=== PATIENT | male | born 1975 ===

== ENCOUNTER 2020-10-25 12:30 | Emergency (ER) | payer SELFPAY ==
[2020-10-25 15:55] VITALS: BP 161/95
--- NOTE | 2020-10-25 15:57 | Event Note ---
ED Screening Note Date of service: 10/25/20 Time: 15:54 ED Screening Note: 45-year-old male patient presents to the emergency department with complaints of dizziness and right arm numbness starting this morning. No preceding fall, trauma, or injury. Patient took his blood pressure and found his systolic blood pressure to be approximately 160 mmHg. He has never been diagnosed with hypertension. He does not have a primary care provider. His girlfriend reportedly gave him "a pill" for his symptoms, which were present for several hours, and his symptoms resolved. He does not know the name of the medication she gave him. General: Awake, appropriately interactive, no acute distress. Neck: Supple. Full range of motion intact. Cardiovascular: Normal peripheral perfusion. Pulmonary: No respiratory distress. Patient is speaking normally without use of accessory muscles. Skin: No apparent rashes or lesions. Neurological: No facial asymmetry. Speech is clear. Follows commands. Patient is alert and oriented. Musculoskeletal: Moves all four extremities spontaneously with normal range of motion. Psych: Cooperative. Appropriate mood and affect. I have greeted and performed a focused rapid initial assessment of this patient. A comprehensive ED assessment and evaluation of the patient, analysis of all test results, and completion of the medical decision-making process will be conducted by additional ED providers. This initial assessment/diagnostic orders/clinical plan/treatment(s) is/are subject to change based on patients health status, clinical progression and re-assessment. Further treatment and workup at subsequent clinical provider's discretion. Patient/guardian urged not to elope from the ED as their condition may be serious if not clinically assessed and managed.
[2020-10-25 16:24] LABS: Basophils % (Auto) 1.2 % (0.0-1.8); Eosinophils % (Auto) 0.2 % (0.0-4.3); Hematocrit 43.9 % (30.3-42.9); Hemoglobin 14.4 gm/dl (10.1-14.3); Lymphocytes # (Auto) 1.2 K/mm3 (1.2-5.4); Lymphocytes % (Auto) 33.2 % (13.4-35.0); Mean Corpuscular HGB Conc 33 % (30-34); Mean Corpuscular Volume 92 fl (79-97); Monocytes # (Auto) 0.4 K/mm3 (0.0-0.8); Monocytes % (Auto) 11.3 % (0.0-7.3); Platelet Count 223 K/mm3 (140-440); Red Blood Count 4.75 M/mm3 (3.65-5.03); Red Cell Distribution Width 14.7 % (13.2-15.2)
--- NOTE | 2020-10-25 16:41 | XRay Report ---
XR chest routine 2V INDICATION / CLINICAL INFORMATION: dizziness/left arm numbness COMPARISON: None available. FINDINGS: SUPPORT DEVICES: None. HEART / MEDIASTINUM: No significant abnormality. LUNGS / PLEURA: Lungs are clear. Costophrenic sulci are sharp. No pneumothorax. ADDITIONAL FINDINGS: No significant additional findings. IMPRESSION: 1. No acute findings. Signer Name: Pasha Landeros MD Signed: 10/25/2020 4:37 PM Workstation Name: [id number]
[2020-10-25 16:46] LABS: Alanine Aminotransferase 26 units/L (7-56); Albumin 4.5 g/dL (3.9-5); BUN/Creatinine Ratio 15; Blood Urea Nitrogen 12 mg/dL (9-20); Calcium 9.1 mg/dL (8.4-10.2); Hemolysis Index 5
--- NOTE | 2020-10-25 18:48 | Emergency Department Report ---
ED Dizziness HPI - General Chief Complaint: Dizziness Stated Complaint: BP HIGH/SHAKES Time Seen by Provider: 10/25/20 18:25 Source: patient Mode of arrival: Ambulatory Limitations: No Limitations, Other (Patient cooperation) - History of Present Illness Initial Comments: 45-year-old male presents emergency department complaining having episode of hypertension while he was out and about doing some shopping associated with with some vague dizziness which has since resolved. He reports no headache, no chest pain no shortness of breath no fevers, chills, sweats, no nausea, no vomiting, no loss of vision no unilateral weakness no numbness or tingling MD Complaint: lightheadedness -: Gradual Timing: gradual onset Description: lightheadedness Severity: mild Worsens With: nothing Associated Symptoms: denies: chest pain, confusion, cough, diaphoresis, fever/chills, loss of appetite, malaise, seizure, shortness of breath, syncope, weakness - Related Data Allergies Allergy/AdvReac Type Severity Reaction Status Date / Time No Known Allergies Allergy Unverified 10/25/20 12:46 ED Review of Systems ROS: Stated complaint: BP HIGH/SHAKES Other details as noted in HPI Comment: All other systems reviewed and negative ED Past Medical Hx - Past Medical History Previous Medical History?: No - Surgical History Past Surgical History?: No ED Physical Exam - General Limitations: No Limitations General appearance: alert, in no apparent distress - Head Head exam: Present: atraumatic, normocephalic - Eye Eye exam: Present: normal appearance - ENT ENT exam: Present: normal exam, normal orophraynx, mucous membranes moist - Neck Neck exam: Present: normal inspection - Respiratory Respiratory exam: Present: normal lung sounds bilaterally. Absent: respiratory distress, rales, rhonchi - Cardiovascular Cardiovascular Exam: Present: regular rate, normal rhythm. Absent: systolic murmur, diastolic murmur, rubs, gallop - GI/Abdominal GI/Abdominal exam: Present: soft, normal bowel sounds. Absent: tenderness, guarding, hyperactive bowel sounds, bruit - Rectal Rectal exam: Present: deferred - Extremities Exam Extremities exam: Present: normal inspection - Back Exam Back exam: Present: normal inspection - Neurological Exam Neurological exam: Present: alert, oriented X3 - Psychiatric Psychiatric exam: Present: normal affect, normal mood - Skin Skin exam: Present: warm, dry, intact, normal color. Absent: rash ED Course Vital Signs 10/25/20 12:50 Temperature 98.8 F Pulse Rate 80 Respiratory 18 Rate Blood Pressure 161/95 [Right] O2 Sat by Pulse 98 Oximetry ED Medical Decision Making - Lab Data Result diagrams: 10/25/20 16:03 10/25/20 16:03 - Radiology Data Radiology results: report reviewed [address] [place] [address] XRay Report Signed Patient: SARAH RUIZ MR#: [id number] : 1975 Acct:[id number] Age/Sex: 45 / M ADM Date: 10/25/20 Loc: ED Attending Dr: Ordering Physician: JOO TIRADO Date of Service: 10/25/20 Procedure(s): XR chest routine 2V Accession Number(s): [id number] cc: JOO TIRADO Fluoro Time In Minutes: XR chest routine 2V INDICATION / CLINICAL INFORMATION: dizziness/left arm numbness COMPARISON: None available. FINDINGS: SUPPORT DEVICES: None. HEART / MEDIASTINUM: No significant abnormality. LUNGS / PLEURA: Lungs are clear. Costophrenic sulci are sharp. No pneumothorax. ADDITIONAL FINDINGS: No significant additional findings. IMPRESSION: 1. No acute findings. Signer Name: Pasha Landeros MD Signed: 10/25/2020 4:37 PM Workstation Name: [id number] Transcribed By: CS Dictated By: Pasha Landeros MD Electronically Authenticated By: Pasha Landeros MD Signed Date/Time: 10/25/201636 DD/ 36 TD/TT: Print - Medical Decision Making Based on the history, exam, and findings presentation not consistent with syncope, seizure, stroke, meningitis, symptomatic anemia, increased ICP, ICH. A dditionally I have a low suspicion for labyrinthitis, acute otitis media or other infectious process. Prior to discharge the symptoms are controlled the patient is functioning well speaking in full sentences he is able to sit and stand and ambulate with no limitations and is able to utilize his cell phone in the form of texting and talking with video check with with no delay. Advise follow-up with primary care provider within 24 to 48 hours. Critical care attestation.: If time is entered above; I have spent that time in minutes in the direct care of this critically ill patient, excluding procedure time. ED Disposition Clinical Impression: HTN (hypertension), Dizziness Disposition: DC- TO HOME OR SELFCARE Is pt being admited?: No Does the pt Need Aspirin: No Condition: Stable Instructions: DASH Eating Plan, Dizziness, [id number], Dizziness, Hypertension, Adult, Hypertension (ED) Additional Instructions: Please sure to follow-up with your primary care provider for definitive treatment of your hypertension and and further treatment options. Referrals: PRIMARY CARE, [Primary Care Provider] - 3-5 Days ABBY GAMEZ MD [Staff Physician] - 3-5 Days [facility] [Provider Group] - 3-5 Days [facility] [Outside] - 3-5 Days
--- NOTE | 2020-11-04 10:29 | Electrocardiograph Report ---
[facility] Test Date: 2020-10-25 Test Time: 12:52:09 Pat Name: SARAH RUIZ Department: Room: Gender: M [employer]: ML : 1975 Requested By: SIXTO ROB Order Number: [id number] Reading MD: Joo Samuels Measurements Intervals [place] Rate: 98 P: 149 SD: 143 QRS: 107 QRSD: 98 T: 125 QT: 349 QTc: 446 Interpretive Statements Sinus or ectopic atrial rhythm Probable left atrial enlargement Right axis deviation Abnormal T, consider ischemia, lateral leads No previous ECG available for comparison Electronically Signed On 11-04-2020 10:29:04 EDT by Joo Samuels
== END 2020-10-25 19:00 | disposition home or self-care (01) ==
LOC: EDSEX → ED 12:30
DX: I10 Essential (primary) hypertension (principal); Z79.899 Other long term (current) drug therapy
CPT/HCPCS: 36415; 71046; 80053; 83735; 84484; 85025; 93005; 99283